=== PATIENT | female | born 1995 | race Caucasian/White ===

== ENCOUNTER 2017-06-07 19:37 | Emergency (ER) | payer OTHER ==
[~2017-06-07] VITALS: Ht 162.6 cm; Wt 46.5 kg
[~2017-06-07 19:37] MED LIST: NOCURR
[2017-06-07 19:39] VITALS: BP 118/80
[2017-06-07] MEDS ORDERED: NITR25OR3 PO (19:45)
[2017-06-07] MEDS ORDERED: HYDR-4061 PO (19:45)
[2017-06-07] MEDS ORDERED: DSS100 PO (19:45)
[2017-06-07] MEDS ORDERED: IBUP-2070 PO (19:45)
== END 2017-06-07 20:27 | disposition left against medical advice (07) ==
LOC: EMS 19:38
DX: R50.9 Fever, unspecified (principal); Z53.21 Procedure and treatment not carried out due to patient leaving prior to being seen by health care provider

== ENCOUNTER 2018-10-08 17:57 | Emergency (ER) | payer OTHER ==
[~2018-10-08] VITALS: Ht 162.6 cm; Wt 47.3 kg
[~2018-10-08 17:57] MED LIST changes: +AMOX500T2 PO; +MIRALAX PO; -NOCURR; +OMEP20 PO; +[UNRECOGNIZED DRUG - CODE] PO
[2018-10-08] MEDS ORDERED: PREN-18 PO (18:00)
[2018-10-08 19:43] LABS: BASOPHILS % (AUTO) 1.4 % (0.0-2.0); EOSINOPHILS % (AUTO) 1.4 % (1.0-6.0); HEMATOCRIT 32.9 % (36-46); HEMOGLOBIN 10.4 g/dL (12.0-16.0); LYMPHOCYTES # (AUTO) 3.2 K/uL (1.0-4.8); LYMPHOCYTES % (AUTO) 34.8 % (22.0-44.0); MEAN CORPUSCULAR HEMOGLOBIN 22.3 pg (26.0-34.0); MEAN CORPUSCULAR HGB CONC 31.8 G/dL (31.0-37.0); MEAN CORPUSCULAR VOLUME 70 fL (80-100); MONOCYTES # (AUTO) 0.9 K/uL (0.1-1.0); MONOCYTES % (AUTO) 9.8 % (2.0-9.0); NEUTROPHILS # (AUTO) 4.9 K/uL (1.8-7.7); NEUTROPHILS % (AUTO) 52.6 % (40.0-70.0); PLATELET COUNT (AUTO) 305 K/uL (150-450); RED BLOOD CELL COUNT(AUTO) 4.68 MIL/uL (4.00-5.20); RED CELL DISTRIBUTION WIDTH 19.2 % (11.5-14.5)
[2018-10-08 19:51] LABS: ANION GAP 9 mmol/L (8-16); CARBON DIOXIDE 28 mmol/L (22-29); CHLORIDE 101 mmol/L (98-107); CREATININE 0.38 mg/dL (0.60-1.30); GLOMERULAR FILTR. RATE CALC > 60 mL/min (>60); GLUCOSE,RANDOM 91 mg/dL (70-110); POTASSIUM 3.5 mmol/L (3.5-5.1); SODIUM SERUM 138 mmol/L (136-145); UREA NITROGEN, BLOOD 14 mg/dL (7-18)
[2018-10-08 19:57] LABS: PLATELET MORPHOLOGY COMMENT NORMAL
[2018-10-08 20:07] LABS: APPEARANCE,URINE CLEAR (CLEAR); BILIRUBIN,URINE NEGATIVE (NEGATIVE); GLUCOSE, URINE (UA) NEGATIVE (NEGATIVE); KETONES,URINE NEGATIVE (NEGATIVE); LEUKOCYTE ESTERASE ,URINE NEGATIVE (NEGATIVE); NITRATE,URINE NEGATIVE (NEGATIVE); OCCULT BLOOD,URINE NEGATIVE (NEGATIVE); PROTEIN,URINE NEGATIVE (NEGATIVE); UROBILINOGEN,URINE 0.2 mg/dL (<=1.0)
[2018-10-08 20:23] LABS: HCG,QUANTITATIVE 8730 mIU/mL (0-6)
[2018-10-08 21:24] VITALS: BP 135/77
== END 2018-10-08 21:27 | disposition home or self-care (01) ==
LOC: EMS 17:58
DX: O20.9 Hemorrhage in early pregnancy, unspecified (principal); O99.331 Smoking (tobacco) complicating pregnancy, first trimester; O99.321 Drug use complicating pregnancy, first trimester; O26.891 Other specified pregnancy related conditions, first trimester; R10.32 Left lower quadrant pain; F12.90 Cannabis use, unspecified, uncomplicated
CPT/HCPCS: 76801; 76817; 86901

== ENCOUNTER 2019-03-21 00:40 | Observation (INO) | payer OTHER ==
[~2019-03-21] VITALS: Ht 162.6 cm; Wt 59.4 kg
[~2019-03-21 00:40] MED LIST changes: -AMOX500T2 PO; -MIRALAX PO; -OMEP20 PO; +PREN-18 PO; -[UNRECOGNIZED DRUG - CODE] PO
[2019-03-21] MEDS ORDERED: RINGERS SOLUTION,LACTATED 1,000 ML IV ONE (02:00)
[2019-03-21] MEDS ORDERED: TERBUTALINE SULFATE 1 MG/ML VIAL SQ ONE (02:00)
[2019-03-21] MEDS ORDERED: NIFEdipine 10 MG CAPSULE PO ONE (02:00)
[2019-03-21] MEDS ORDERED: CefTRIAXone 1 GM/DEXTROSE 50 ML IV ONE (02:00)
[2019-03-21] MEDS ORDERED: RINGERS SOLUTION,LACTATED 1,000 ML IV SCH (02:00)
[2019-03-21 04:27] VITALS: BP 108/62
== END 2019-03-21 04:30 | disposition home or self-care (01) ==
LOC: EMS 00:42 → 4S 01:15 → INTOOBSV 01:15 → 4S 04:30
PROVIDERS: ADMIT Obstetrics & Gynecology; ATTEND Obstetrics & Gynecology
DX: O26.893 Other specified pregnancy related conditions, third trimester (principal); R10.9 Unspecified abdominal pain; M54.9 Dorsalgia, unspecified; O62.9 Abnormality of forces of labor, unspecified; Z3A.29 29 weeks gestation of pregnancy
CPT/HCPCS: 81002; 96365; 96372; G0378; J0696; J3105

== ENCOUNTER 2022-11-26 16:57 | Emergency (ER) | payer OTHER ==
[~2022-11-26] VITALS: Ht 162.6 cm; Wt 52.7 kg
[2022-11-26] MEDS ORDERED: FERR325T27 PO (17:01)
[2022-11-26] MEDS ORDERED: MEDR150V13 IM (17:01)
[2022-11-26] MEDS ORDERED: MAG HYDROX/AL HYDROX/SIMETH ES 30 ML SUSPENSION UDCUP PO ONE (18:00)
[2022-11-26] MEDS ORDERED: LIDOCAINE 5% TRANSDERMAL PATCH TD ONE (18:00)
[2022-11-26 18:32] LABS: BASOPHILS % (AUTO) 0.6 % (0.0-2.0); HEMOGLOBIN 11.4 g/dL (12.0-16.0); LYMPHOCYTES # (AUTO) 2.6 K/uL (1.0-4.8); LYMPHOCYTES % (AUTO) 35.3 % (22.0-44.0); MEAN CORPUSCULAR HEMOGLOBIN 23.4 pg (26.0-34.0); MEAN CORPUSCULAR HGB CONC 31.5 G/dL (31.0-37.0); MEAN CORPUSCULAR VOLUME 74 fL (80-100); MONOCYTES # (AUTO) 0.6 K/uL (0.1-1.0); MONOCYTES % (AUTO) 8.8 % (2.0-9.0); NEUTROPHILS # (AUTO) 3.9 K/uL (1.8-7.7); NEUTROPHILS % (AUTO) 53.3 % (40.0-70.0); PLATELET COUNT (AUTO) 246 K/uL (150-450); RED BLOOD CELL COUNT(AUTO) 4.85 MIL/uL (4.00-5.20); RED CELL DISTRIBUTION WIDTH 17.1 % (11.5-14.5)
[2022-11-26 18:43] LABS: ANION GAP 8 mmol/L (8-16); CARBON DIOXIDE 28 mmol/L (22-29); CHLORIDE 104 mmol/L (98-107); CREATININE 0.66 mg/dL (0.60-1.30); GLOMERULAR FILTR. RATE CALC > 60 mL/min (>60); GLUCOSE,RANDOM 89 mg/dL (70-110); POTASSIUM 3.4 mmol/L (3.5-5.1); SODIUM SERUM 140 mmol/L (136-145); UREA NITROGEN, BLOOD 11 mg/dL (7-18)
[2022-11-26 18:49] LABS: ALANINE AMINOTRANSFERASE 6 U/L (12-78); ALKALINE PHOSPHATASE 80 U/L (46-116); ASPARTATE AMINOTRANSFERASE 13 U/L (15-37); BILIRUBIN,TOTAL 0.4 mg/dL (0.1-1.0); LIPASE 209 U/L (73-393); TOTAL PROTEIN, SERUM 7.5 g/dL (6.4-8.2)
[2022-11-26 19:40] LABS: APPEARANCE,URINE CLEAR (CLEAR); BILIRUBIN,URINE NEGATIVE (NEGATIVE); GLUCOSE, URINE (UA) NEGATIVE (NEGATIVE); KETONES,URINE NEGATIVE (NEGATIVE); LEUKOCYTE ESTERASE ,URINE NEGATIVE (NEGATIVE); NITRATE,URINE NEGATIVE (NEGATIVE); OCCULT BLOOD,URINE NEGATIVE (NEGATIVE); PROTEIN,URINE TRACE mg/dL (NEGATIVE); SPECIFIC GRAVITIY, URINE 1.025 (1.003-1.030); UROBILINOGEN,URINE <=1.0 mg/dL (<=1.0)
[2022-11-26] MEDS ORDERED: ACETAMINOPHEN 325 MG TABLET PO ONE (20:15)
[2022-11-26] MEDS ORDERED: IBUPROFEN 600 MG TABLET PO ONE (20:15)
[2022-11-26 20:40] VITALS: BP 118/70
== END 2022-11-26 20:41 | disposition home or self-care (01) ==
LOC: EMS 17:04
DX: M54.9 Dorsalgia, unspecified (principal); R10.12 Left upper quadrant pain; N80.9 Endometriosis, unspecified; F17.210 Nicotine dependence, cigarettes, uncomplicated; F12.90 Cannabis use, unspecified, uncomplicated; Z98.890 Other specified postprocedural states
CPT/HCPCS: 71046; 80053; 81003; 83690; 84703; 85025; 87491; 87591; 93005; 99285; 36415-L1; 36415-TC

== ENCOUNTER 2022-12-26 17:31 | Emergency (ER) | payer OTHER ==
[~2022-12-26] VITALS: Ht 162.6 cm; Wt 53.6 kg
[~2022-12-26 17:31] MED LIST changes: +FERR325T27 PO; +MEDR150V13 IM; -PREN-18 PO
[2022-12-26 17:45] VITALS: BP 110/64
[2022-12-26] MEDS ORDERED: KETOROLAC TROMETHAMINE 60 MG/2 ML VIAL IM ONE (19:45)
[2022-12-26] MEDS ORDERED: HYDR-4723 PO (20:17)
[2022-12-26] MEDS ORDERED: BACL10TA PO (20:17)
== END 2022-12-26 20:35 | disposition home or self-care (01) ==
LOC: EMS 17:41
DX: S93.401A Sprain of unspecified ligament of right ankle, initial encounter (principal); S80.11XA Contusion of right lower leg, initial encounter; N80.9 Endometriosis, unspecified; K29.70 Gastritis, unspecified, without bleeding; F17.210 Nicotine dependence, cigarettes, uncomplicated; F12.90 Cannabis use, unspecified, uncomplicated; Z98.890 Other specified postprocedural states; V89.2XXA Person injured in unspecified motor-vehicle accident, traffic, initial encounter; Y93.89 Activity, other specified; Y92.89 Other specified places as the place of occurrence of the external cause; Y99.8 Other external cause status
CPT/HCPCS: 99284; 73590; 73610; 96372; J1885